=== PATIENT | male | born 1990 | race African-American/Black ===

== ENCOUNTER 2019-11-08 13:33 | Emergency (ER) | payer OTHER ==
[~2019-11-08] VITALS: Ht 177.8 cm; Wt 95.3 kg
[2019-11-08 13:43] VITALS: BP 104/64
--- NOTE | 2019-11-08 13:46 | NUR ---
PT AMBULATES BACK TO THE LOBBY
[2019-11-08] MEDS ORDERED: ALUMINUM HYD/MAG/SIMETHICONE 30 ML UDC ONE (15:27)
[2019-11-08] MEDS ORDERED: LIDOCAINE VISCOUS 2% 20 ML UDC ONE (15:27)
[2019-11-08] MEDS ORDERED: DICYCLOMINE HCL LIQUID 10 MG/5 ML UDC ONE (15:27)
[2019-11-08] MEDS: DICYCLOMINE HCL LIQUID 20 MG, ALUMINUM HYD/MAG/SIMETHICONE 30 ML, LIDOCAINE VISCOUS 2% ... PO ONE ×3 (15:34)
[2019-11-08] MEDS: ONDANSETRON 4 MG ODT PO ONE (15:34)
[2019-11-08 16:13] VITALS: BP 104/64
--- NOTE | 2019-11-08 16:13 | NUR ---
Patient discharged with v/s stable. Written and verbal after care instructions given and explained. Patient alert, oriented and verbalized understanding of instructions. Ambulatory with steady gait. All questions addressed prior to discharge. ID band removed. Patient advised to follow up with PMD. Rx of PEPCID, BENTYL, TAMIFLU, AND PROMETHAZINE given. Patient educated on indication of medication including possible reaction and side effects. Opportunity to ask questions provided and answered.
== END 2019-11-08 16:13 | disposition home or self-care (01) ==
LOC: MED 13:33
DX: J06.9 Acute upper respiratory infection, unspecified (principal); R10.13 Epigastric pain; F17.210 Nicotine dependence, cigarettes, uncomplicated
CPT/HCPCS: 87804; 99283; Q0162

== ENCOUNTER 2021-12-25 19:55 | Emergency (ER) | payer OTHER ==
[~2021-12-25] VITALS: Ht 180.3 cm; Wt 117.9 kg
[2021-12-25 20:14] VITALS: BP 121/78
--- NOTE | 2021-12-25 20:19 | NUR ---
Patient waited in Lobby.
--- NOTE | 2021-12-25 21:15 | NUR ---
C/O abdominal pain, nausea, vomiting and diarrhea x today. Patient reported, had abdominal pain, nausea, vomiting and diarrhea since this morning. PMHx: HTN (no medication)
--- NOTE | 2021-12-25 21:32 | NUR ---
Patient ambulated to bed 9.
--- NOTE | 2021-12-25 21:55 | NUR ---
Dr. Bro at bedside to exam patient.
[2021-12-25] MEDS ORDERED: KETOROLAC 60 MG/2 ML VIAL IM ONE (22:05)
[2021-12-25] MEDS ORDERED: ONDANSETRON 4 MG TAB PO ONE (23:00)
[2021-12-25] MEDS ORDERED: ACETAMINOPHEN EXTRA STRENGTH 500 MG TAB PO ONE (23:00)
[2021-12-25] MEDS ORDERED: PANTOPRAZOLE 40 MG TABEC PO ONE (23:00)
[2021-12-25] MEDS ORDERED: ONDA-188 SL (23:01)
== END 2021-12-25 23:48 | disposition home or self-care (01) ==
LOC: MED 19:55
DX: R11.2 Nausea with vomiting, unspecified (principal); R19.7 Diarrhea, unspecified; Z79.899 Other long term (current) drug therapy
CPT/HCPCS: 96372; 99284; J1885; Q0162